=== PATIENT | male | born 1950 | race Caucasian/White ===

== ENCOUNTER 2016-07-26 15:16 | Emergency (ER) | payer OTHER ==
[~2016-07-26] VITALS: Ht 167.6 cm; Wt 65.0 kg
[2016-07-26 15:28] VITALS: Ht 167.6 cm; Wt 65.0 kg
[2016-07-26] MEDS ORDERED: ONDANSETRON (ODT) 4 MG TAB ODT STA (15:55)
[2016-07-26] MEDS ORDERED: HYDROCODONE/APAP (10/325) TAB PO ONE (16:00)
--- NOTE | 2016-07-26 17:07 | RADRPT ---
PROCEDURE: XR Lumbar Spine. CLINICAL INDICATION: Back pain. TECHNIQUE: Three views. AP, lateral and cone-down lateral view of the lumbar spine were obtained. COMPARISON: No prior studies are available for comparison. FINDINGS: There is normal stature and alignment of the vertebrae. There is no fracture. There is no lytic or blastic lesion. There are degenerative changes with osteophytes throughout. There is disk space narrowing at L3-4, L4-5, and L5-S1. Vascular calcifications are present consistent with atherosclerosis. IMPRESSION: 1. Degenerative changes. 2. No acute abnormality. 3. Atherosclerosis. RPTAT: QQ .Eric Ron MD, MD Date Time Electronically viewed and signed by .Eric Ron MD, MD on 07/26/2016 17:07 .R/
[2016-07-26] MEDS ORDERED: DOCU-144 PO (17:09)
[2016-07-26] MEDS ORDERED: HYDR-902 PO (17:09)
[2016-07-26] MEDS ORDERED: MULT1CAP20 PO (17:09)
[2016-07-26 17:36] VITALS: BP 135/60; PULSE 70; RESP 16; TEMP 97.9
--- NOTE | 2016-07-26 19:09 | ERD ---
ER Documentation Chief Complaint Date/Time DATE: 07/26/16 TIME: 19:06 Chief Complaint LOWER BACK PAIN RADIATING DOWN LEGS. CURRENTLY BEING TREATED FOR LIVER CA HPI Patient is a 65-year-old male with liver cancer who presents with lower back pain and leg pain. The patient has bilateral leg pain in the back of his legs with the right being worse than the left. The patient had numbness over his right mcdowell. He has had symptoms for about 1-1/2 years but it has been worse over the past few days. He has had no fevers and no incontinence. He tried tramadol for his pain. His primary doctor is Dr. Saenz. He does not currently have a pain management doctor. ROS All systems reviewed and are negative except as per history of present illness. Medications Home Meds Active Scripts Multivitamin (Multivitamins) 1 Each Capsule, 1 EACH PO DAILY, #30 CAP Prov:HALLEY BARRON MD 07/26/16 Docusate Sodium* (Colace*) 100 Mg Capsule, 100 MG PO TID, #30 CAP Prov:HLALEY BARRON MD 07/26/16 Hydrocodone/Acetaminophen (Havana 10-325 Tablet) 1 Each Tablet, 1 TAB PO Q6H Y for PAIN, #7 TAB Prov:HALLEY BARRON MD 07/26/16 Allergies Allergies: Coded Allergies: No Known Allergy (Unverified , 07/26/16) PMhx/Soc Hx Miscellaneous Medical Probl: Yes (hepatic carcinoma ) Hx Alcohol Use: No Hx Substance Use: No Hx Tobacco Use: Yes FmHx Family History: No diabetes Physical Exam Vitals Vital Signs Date Time Temp Pulse Resp B/P Pulse Ox O2 Delivery O2 Flow Rate FiO2 07/26/16 17:36 97.9 70 16 135/60 99 Room Air 07/26/16 15:55 74 14 141/67 97 Room Air 07/26/16 15:28 98.1 72 20 172/73 98 Physical Exam Const: Mild distress secondary to pain Head: Atraumatic Eyes: Normal Conjunctiva ENT: Normal External Ears, Nose and Mouth. Neck: Full range of motion..~ No meningismus. Resp: Clear to auscultation bilaterally Cardio: Regular rate and rhythm, no murmurs Abd: Soft, non tender, non distended. Normal bowel sounds Skin: No petechiae or rashes Back: No midline tenderness to palpation, bilateral paravertebral pain with radiation down the leg consistent with sciatica Ext: No cyanosis, or edema Neur: Awake and alert strength in the lower extremities equal with flexion and extension Psych: Normal Mood and Affect Results 24 hrs Current Medications Medications (Trade) Dose Ordered Sig/Walt Route PRN Reason Start Time Stop Time Status Last Admin Dose Admin Acetaminophen/ Hydrocodone Bitart (H[place]ana (10/325)) 1 tab ONCE ONCE PO 07/26/16 16:00 07/26/16 16:01 DC 07/26/16 16:37 Ondansetron HCl (Zofran Odt) 4 mg ONCE STAT ODT 07/26/16 15:55 07/26/16 15:56 DC 07/26/16 16:38 Procedures/MDM PROCEDURE: XR Lumbar Spine. CLINICAL INDICATION: Back pain. TECHNIQUE: Three views. AP, lateral and cone-down lateral view of the lumbar spine were obtained. COMPARISON: No prior studies are available for comparison. FINDINGS: There is normal stature and alignment of the vertebrae. There is no fracture. There is no lytic or blastic lesion. There are degenerative changes with osteophytes throughout. There is disk space narrowing at L3-4, L4-5, and L5-S1. Vascular calcifications are present consistent with atherosclerosis. IMPRESSION: 1. Degenerative changes. 2. No acute abnormality. 3. Atherosclerosis. RPTAT: QQ .Eric Ron MD, MD Date Time Electronically viewed and signed by .Eric Ron MD, MD on 07/26/2016 17:07 Smoking Cessation Therapy: Pt. was lectured for greater than 3 minutes on the health risks of continued smoking and the benefits of cessation. Patient is a 65-year-old male who presents with acute on chronic back pain. I believe he has sciatic type pain. The patient was given [place] and Zofran. He feels better. I see no sign of bony metastases in his lower lumbar spine. I doubt cauda equina syndrome, epidural abscess, or epidural hematoma. I believe outpatient management is appropriate. The patient will be given a prescription for [place] and Colace. The patient can follow-up with Dr. Kruse from pain management. He can return for any worsening symptoms. Departure Diagnosis: Primary Impression: Back pain Back pain location: low back pain Chronicity: acute Back pain laterality: bilateral Sciatica presence: with sciatica Sciatica laterality: bilateral sciatica Qualified Code: M54.42 - Acute bilateral low back pain with bilateral sciatica Condition: Fair Patient Instructions: Back Pain W/ Sciatica Referrals: NATALIIA KRUSE Additional Instructions: SPECIALIST: YOU HAVE A MEDICAL CONDITION WHICH REQUIRES YOU TO SEE A SPECIALIST WITHIN THE NEXT 1-2 DAYS. PLEASE FOLLOW UP WITH YOUR PRIMARY PHYSICIAN FOR REFFERAL.IF YOU DO NOT HAVE A PRIMARY CARE PHYSICIAN AND/OR YOU CAN NOT AFFORD TO SEE A PHYSICIAN THE FOLLOWING RESOURCES HAVE BEEN SUPPLIED TO YOU. IT IS YOUR RESPONSIBILITY TO BE SEEN BY THE SPECIALIST HALLEY BARRON MD Jul 26, 2016 19:08
== END 2016-07-26 17:37 | disposition home or self-care (01) ==
LOC: E/R 15:16
DX: M54.41 Lumbago with sciatica, right side (principal); R40.2142 Coma scale, eyes open, spontaneous, at arrival to emergency department; M54.42 Lumbago with sciatica, left side; R40.2252 Coma scale, best verbal response, oriented, at arrival to emergency department; R40.2362 Coma scale, best motor response, obeys commands, at arrival to emergency department; C22.0 Liver cell carcinoma; Z87.891 Personal history of nicotine dependence
CPT/HCPCS: 72100; Z7502; Z7610